=== PATIENT | female | born 1960 | race Two or more races ===

== ENCOUNTER 2018-03-31 16:00 | Inpatient (IN) | payer OTHER ==
[2018-03-31 18:31] VITALS: BMI 26.9
--- NOTE | 2018-03-31 20:26 | HP ---
COWS - Scale Resting Pulse: 1= RI 81-100 Sweatin=Flushed/Facial Moisture Restless Observation: 0= Sits Still Pupil Size: 0= Normal to Room Light Bone or Joint Aches: 0= None Runny Nose/ Eye Tearin= Runny Nose/Eyes GI Upset > 30mins: 3= Vomiting/Diarrhea (diarrhea x 2, no vomiting) Tremor Observation: 2= Slight Tremor Visible Yawning Observation: 1= 1-2x During Session Anxiety or Irritability: 4=Extreme Anxiety Goose Flesh Skin: 0=Smooth Skin COWS Score: 15 Admission [facility] Chief Complaint: Heroin withdrawal symptoms Allergies/Adverse Reactions: Allergies Allergy/AdvReac Type Severity Reaction Status Date / Time No Known Allergies Allergy Verified 03/31/18 18:30 History of Present Illness: 57 years old female with a long history of heroin dependence is seeking admission to detox. Patient's last detox was 7 years ago at [facility] and reports 8 years of sobriety. She has medical history of HIV+, Hep C treated Harvoni, Depression, Poly neuropathy, Anxiety, anemia and Insomnia. Patient denies suicide attempt and suicidal ideation at this time. Exam Limitations: No Limitations - Ebola screening Have you traveled outside of the country in the last 21 days: No (N) Have you had contact with anyone from an Ebola affected area: No Have you been sick,other than usual withdrawal symptoms: No Do you have a fever: No - Review of Systems Constitutional: Chills, Loss of Appetite, Malaise, Changes in sleep EENT: reports: No Symptoms Reported Respiratory: reports: No Symptoms reported Cardiac: reports: No Symptoms Reported GI: reports: Diarrhea (x 2), Nausea, Poor Appetite, Poor Fluid Intake, Abdominal cramping : reports: No Symptoms Reported Musculoskeletal: reports: Back Pain, Muscle Pain Integumentary: reports: Dryness Neuro: reports: Tremors Endocrine: reports: No Symptoms Reported Hematology: reports: Anemia, Easy Bruising Psychiatric: reports: Anxious, Depressed Other Systems: Reviewed and Negative Patient History - Patient Medical History Hx Anemia: Yes (Not on medication) Hx Asthma: No Hx Chronic Obstructive Pulmonary Disease (COPD): No Hx Cancer: No Hx Cardiac Disorders: No Hx Hypertension: No Hx Hypercholesterolemia: No Hx Pacemaker: No HX Cerebrovascular Accident: No Hx Seizures: No Hx Dementia: No Hx Diabetes: No Hx Gastrointestinal Disorders: No Hx Liver Disease: Yes (Hep C (treated with Harvoni)) Hx Genitourinary Disorders: No Hx Sexually Transmitted Disorders: No Hx Renal Disease (ESRD): No Hx Thyroid Disease: No Hx Human Immunodeficiency Virus (HIV): Yes (Diagnosed 1996, On Triumeq) Hx Hepatitis C: Yes (Treated with Harvoni) Hx Depression: Yes (Not on medication) Hx Suicide Attempt: No (Denies suicide attempt and suicidal ideation at this time) Hx Bipolar Disorder: Yes (Not on medication) Hx Schizophrenia: No Other Medical History: Anxiety - - Patient Surgical History Past Surgical History: No Hx Neurologic Surgery: No Hx Cataract Extraction: No Hx Cardiac Surgery: No Hx Lung Surgery: No Hx Breast Surgery: No Hx Breast Biopsy: No Hx Abdominal Surgery: No Hx Appendectomy: No Hx Cholecystectomy: No Hx Genitourinary Surgery: No Hx Section: No Hx Orthopedic Surgery: No Anesthesia Reaction: No - PPD History Previous Implant?: Yes Documented Results: Negative w/o proof Implanted On Prior [facility] Admission?: No PPD to be Administered?: Yes - Reproductive History Patient is a Female of Child Bearing Age (11 -55 yrs old): Yes LMP comment: MENOPAUSAL Patient : No - Smoking Cessation Smoking history: Current every day smoker Have you smoked in the past 12 months: Yes Aproximately how many cigarettes per day: 4 Hx Chewing Tobacco Use: No Initiated information on smoking cessation: Yes 'Breaking Loose' booklet given: 03/31/18 - Substance & Tx. History Hx Alcohol Use: No Hx Substance Use: Yes Substance Use Type: Heroin, Opiates Hx Substance Use Treatment: Yes ([facility]) - Substances Abused Heroin Route: Inhalation Frequency: Daily Amount used: 4 bags Age of first use: 27 Date of Last Use: 03/31/18 Family Disease History - Family Disease History Family Disease History: CA: Mother (Stomach Cancer- ), Brother (Sarcoma - ), Respiratory: Brother, Sister (Aneurysm), Other: Father (Alcoholic) Admission Physical Exam BHS - Vital Signs Vital Signs: Vital Signs - 24 hr 03/31/18 18:26 Temperature 98.7 F Pulse Rate 84 Respiratory 18 Rate Blood Pressure 110/69 - Physical General Appearance: Yes: Moderate Distress, Tremorous, Irritable, Sweating, Anxious HEENTM: Yes: EOMI, Normal ENT Inspection, Normocephalic, Normal Voice, HERMAN Respiratory: Yes: Lungs Clear, Normal Breath Sounds, No Respiratory Distress Neck: Yes: Supple Breast: Yes: Breast Exam Deferred Cardiology: Yes: Regular Rhythm, Regular Rate Abdominal: Yes: Normal Bowel Sounds, Soft Genitourinary: Yes: Within Normal Limits Back: Yes: Normal Inspection Musculoskeletal: Yes: Back pain, Muscle Pain Extremities: Yes: Tremors Neurological: Yes: Alert, Normal Mood/Affect Integumentary: Yes: Dry Lymphatic: Yes: Within Normal Limits - Diagnostic (1) Opioid dependence with withdrawal Current Visit: Yes Status: Chronic (2) Depression Current Visit: Yes Status: Chronic Qualifiers: Depression Type: unspecified Qualified Code(s): F32.9 - Major depressive disorder, single episode, unspecified (3) Anxiety Current Visit: Yes Status: Chronic (4) HIV (human immunodeficiency virus infection) Current Visit: Yes Status: Chronic (5) Anemia Current Visit: Yes Status: Chronic (6) Insomnia Current Visit: Yes Status: Chronic (7) Polyneuropathy Current Visit: Yes Status: Chronic Cleared for Admission [facility] - Detox or Rehab [facility] Level of Care: Medically Managed Detox Regimen/Protocol: Methadone [facility] Breath Alcohol Content Breath Alcohol Content: 0 Urine Pregancy Test - Result Urine Test Results: Negative- NO Line Present Urine Drug Screen - Results Drug Screen Negative: No Urine Drug Screen Results: OPI-Opiates, OXY-Oxycodone
[2018-03-31] MEDS ORDERED: MAGNESIUM CITRATE 300 ML BOTTLE PO PRN (20:40)
[2018-03-31] MEDS ORDERED: ACETAMINOPHEN 325 MG TABLET (FP) PO PRN (20:40)
[2018-03-31] MEDS ORDERED: LOPERAMIDE HCL 2 MG CAPSULE PO PRN (20:40)
[2018-03-31] MEDS ORDERED: IBUPROFEN 400 MG TABLET (FP) PO PRN (20:40)
[2018-03-31] MEDS ORDERED: MENTHOL/PHENOL 1 EACH UD MM PRN (20:40)
[2018-03-31] MEDS ORDERED: P-EPHED 60MG/TRIPROLIDI 2.5MG TABLET PO PRN (20:40)
[2018-03-31] MEDS ORDERED: MAG HYDROX/AL HYDROX/SIMETH 30 ML UNIT-DOSE CUP PO PRN (20:40)
[2018-03-31] MEDS ORDERED: guaiFENesin/D-METHORPHAN HB 10 ML UNIT-DOSE CUPS PO PRN (20:40)
[2018-03-31] MEDS ORDERED: MAGNESIUM HYDROX 2400MG/30ML ORAL SUSPENSION 30 ML CUP PO PRN (20:40)
[2018-03-31] MEDS ORDERED: NICOTINE POLACRILEX 2 MG GUM BC PRN (20:40)
[2018-03-31] MEDS ORDERED: METHADONE HCL 10 MG TABLET (FOR DETOX USE ONLY) PO ONE ×2 (21:00→23:00)
[2018-03-31] MEDS ORDERED: NYSTATIN POWDER 100,000 UNITS/GM - 15 GM TOPICAL POWDER TP SCH (22:00)
[2018-03-31] MEDS ORDERED: MELATONIN 5 MG TABLETS PO PRN (22:00)
[2018-03-31] MEDS: THIAMINE HCL 100 MG TABLET (FP) PO SCH (23:17)
[2018-03-31] MEDS: GABAPENTIN 300 MG CAPSULE (FP) PO SCH (23:18)
[2018-04-01 05:12] LABS: URINE APPEARANCE CLOUDY; URINE COLOR AMBER; URINE GLUCOSE (UA) NEGATIVE (NEGATIVE); URINE KETONE TRACE (NEGATIVE); URINE NITRITE NEGATIVE (NEGATIVE)
[2018-04-01 05:38] LABS: URINE LEUK ESTERASE 1+ (NEGATIVE); URINE PROTEIN 1+ (NEGATIVE)
[2018-04-01 05:43] LABS: EPI CELLS FEW /HPF (FEW); URINE BACTERIA RARE /hpf (NONE SEEN); URINE MUCUS RARE; YEAST MANY
[2018-04-01] MEDS: GABAPENTIN 300 MG CAPSULE (FP) PO SCH ×3 (05:59→22:01)
--- NOTE | 2018-04-01 07:48 | CONSULT ---
[facility] Psychiatric Consult - Data Date of interview: 04/01/18 Admission source: [facility] Identifying data: This is 57 years old female, single mother of two, living with family, on SSI, with psychiatric hospitalization history, with a long history of heroin dependence is seeking admission to detox. Patient reports withdrawal symptoms from Opioids. Substance Abuse History: Smoking history: Current every day smoker. Have you smoked in the past 12 months: Yes. Aproximately how many cigarettes per day: 4. Hx Chewing Tobacco Use: No. Initiated information on smoking cessation: Yes. 'Breaking Loose' booklet given: 03/31/18. - Substance & Tx. History. Hx Alcohol Use: No. Hx Substance Use: Yes. Substance Use Type: Heroin, Opiates. Hx Substance Use Treatment: Yes ([facility]). - Substances Abused. Heroin. Route: Inhalation. Frequency: Daily. Amount used: 4 bags. Age of first use: 27. Date of Last Use: 03/31/18 Medical History: Anemia history, HIV+ history, HepC+ Psychiatric History: Patient reports history depression and anxiety, reports unclear psychiatric admission on about more then 10 years ago fir safety, denies suicidal, homicidal history, reports taking prior to admission: Trazodone 100mg pop qhs, patient refusing to restart Trazodone during detox protocol. Physical/Sexual Abuse/Trauma History: Denies Additional Comment: Observation. Detox Unit Care Protocol Mental Status Exam - Mental Status Exam Alert and Oriented to: Person Cognitive Function: Fair Patient Appearance: Unkempt Mood: Sad Affect: Flat Patient Behavior: Sedated Speech Pattern: Delayed Voice Loudness: Mildly Soft/Quiet Thought Process: Circumstantial Thought Disorder: Being Controlled Hallucinations: Denies Suicidal Ideation: Denies Homicidal Ideation: Denies Insight/Judgement: Fair Sleep: Difficulty falling asleep Appetite: Fair Muscle strength/Tone: Mild Hypotonicity Gait/Station: Shuffling Additional Comments: Observation. Detox Unit Care Protocol Psychiatric Findings - Problem List (Theodosia 1, 2,3) (1) Nicotine dependence Current Visit: Yes Status: Acute (2) Drug-induced mood disorder Current Visit: Yes Status: Acute (3) Anemia Current Visit: Yes Status: Chronic (4) Anxiety Current Visit: Yes Status: Chronic (5) Depression Current Visit: Yes Status: Chronic Qualifiers: Depression Type: unspecified Qualified Code(s): F32.9 - Major depressive disorder, single episode, unspecified (6) HIV (human immunodeficiency virus infection) Current Visit: Yes Status: Chronic (7) Insomnia Current Visit: Yes Status: Chronic Qualifiers: Insomnia type: unspecified Qualified Code(s): G47.00 - Insomnia, unspecified (8) Opioid dependence with withdrawal Current Visit: Yes Status: Chronic (9) Polyneuropathy Current Visit: Yes Status: Chronic - Initial Treatment Plan Initial Treatment Plan: Observation. Detox Unit Care Protocol
[2018-04-01 09:40] LABS: HEMATOCRIT 42.7 % (32.4-45.2); HEMOGLOBIN 14.2 GM/dL (10.7-15.3); MCH 35.3 pg (25.7-33.7); MCHC 33.2 g/dl (32.0-36.0); MEAN CELL VOLUME 106.1 fl (80-96); MEAN PLT VOLUME 9.3 fl (7.5-11.1); PLATELET COUNT 95 K/MM3 (134-434); RBC 4.03 M/mm3 (3.60-5.2); RDW 13.1 % (11.6-15.6); WHITE BLOOD COUNT 4.7 K/mm3 (4.0-10.0)
[2018-04-01 09:53] LABS: ALBUMIN 3.4 g/dl (3.4-5.0); ANION GAP 5 (8-16); BLOOD UREA NITROGEN 15 mg/dL (7-18); CALCIUM 9.1 mg/dL (8.5-10.1); CHLORIDE 107 mmol/L (98-107); CO2 30 mmol/L (21-32); GLUCOSE,RANDOM 73 mg/dL (74-106); POTASSIUM 4.7 mmol/L (3.5-5.1); SGOT/AST 35 U/L (15-37); SODIUM 142 mmol/L (136-145)
[2018-04-01 09:55] LABS: ALK PHOS 112 U/L (45-117); CREATININE 1.1 mg/dL (0.55-1.02); SGPT/ALT 25 U/L (12-78); TOT PROT 7.1 g/dl (6.4-8.2)
[2018-04-01] MEDS ORDERED: METHADONE HCL 10 MG TABLET (FOR DETOX USE ONLY) PO ONE (10:00)
[2018-04-01] MEDS: NYSTATIN TP SCH ×2 (10:16→22:02)
[2018-04-01] MEDS: PRENATAL VITAMINS W/ FOLIC ACID TABLET (FP) PO SCH (10:16)
[2018-04-01] MEDS: NICOTINE 14 MG/24 HOURS TOPICAL PATCH TD SCH (10:16)
--- NOTE | 2018-04-01 11:28 | PN ---
BHS COWS - Scale Resting Pulse: 0= [place] 80 or Below Sweatin= Chills/Flushing Restless Observation: 1= Difficult to Sit Still Pupil Size: 1= Pupils >than Normal Bone or Joint Aches: 2= Severe Diffuse Aches Runny Nose/ Eye Tearin= Nasal Congestion GI Upset > 30mins: 2= Nausea/Diarrhea Tremor Observation of Outstretched Hands: 2= Slight Tremor Visible Yawning Observation: 2= >3x During Session Anxiety or Irritability: 2=Irritable/Anxious Goose Flesh Skin: 0=Smooth Skin COWS Score: 14 BHS Progress Note (SOAP) Subjective: muscle cramping joints pain body aches sweat tremor Objective: 04/01/18 11:33 Vital Signs Temperature 97.7 F 04/01/18 09:30 Pulse Rate 63 04/01/18 09:30 Respiratory Rate 18 04/01/18 09:30 Blood Pressure 105/62 04/01/18 09:30 O2 Sat by Pulse Oximetry (%) Laboratory Last Values WBC 4.7 K/mm3 (4.0-10.0) 04/01/18 07:30 RBC 4.03 M/mm3 (3.60-5.2) 04/01/18 07:30 Hgb 14.2 GM/dL (10.7-15.3) 04/01/18 07:30 Hct 42.7 % (32.4-45.2) 04/01/18 07:30 MCV 106.1 fl (80-96) H 04/01/18 07:30 MCH 35.3 pg (25.7-33.7) H 04/01/18 07:30 MCHC 33.2 g/dl (32.0-36.0) 04/01/18 07:30 RDW 13.1 % (11.6-15.6) 04/01/18 07:30 Plt Count 95 K/MM3 (134-434) L 04/01/18 07:30 MPV 9.3 fl (7.5-11.1) 04/01/18 07:30 Sodium 142 mmol/L (136-145) 04/01/18 07:30 Potassium 4.7 mmol/L (3.5-5.1) 04/01/18 07:30 Chloride 107 mmol/L (98-107) 04/01/18 07:30 Carbon Dioxide 30 mmol/L (21-32) 04/01/18 07:30 Anion Gap 5 (8-16) L 04/01/18 07:30 BUN 15 mg/dL (7-18) 04/01/18 07:30 Creatinine 1.1 mg/dL (0.55-1.02) H 04/01/18 07:30 Creat Clearance w eGFR 51.02 (>60) 04/01/18 07:30 Random Glucose 73 mg/dL (74-106) L 04/01/18 07:30 Calcium 9.1 mg/dL (8.5-10.1) 04/01/18 07:30 Total Bilirubin 1.0 mg/dL (0.2-1.0) 04/01/18 07:30 AST 35 U/L (15-37) 04/01/18 07:30 ALT 25 U/L (12-78) 04/01/18 07:30 Alkaline Phosphatase 112 U/L (45-117) 04/01/18 07:30 Total Protein 7.1 g/dl (6.4-8.2) 04/01/18 07:30 Albumin 3.4 g/dl (3.4-5.0) 04/01/18 07:30 Urine Color [place] 03/31/18 23:25 Urine Appearance Cloudy 03/31/18 23:25 Urine pH 5.0 (5.0-8.0) 03/31/18 23:25 Ur Specific [place] 1.025 (1.001-1.035) 03/31/18 23:25 Urine Protein 1+ (NEGATIVE) H 03/31/18 23:25 Urine Glucose (UA) Negative (NEGATIVE) 03/31/18 23:25 Urine Ketones Trace (NEGATIVE) H 03/31/18 23:25 Urine Blood Negative (NEGATIVE) 03/31/18 23:25 Urine Nitrite Negative (NEGATIVE) 03/31/18 23:25 Urine Bilirubin 2.0 (<2.0 mg/dL) 03/31/18 23:25 Urine Urobilinogen 2.0 mg/dL (0.2-1.0) H 03/31/18 23:25 Ur Leukocyte Esterase 1+ (NEGATIVE) H 03/31/18 23:25 Urine WBC (Auto) 18 /hpf (3-5) 03/31/18 23:25 Urine RBC (Auto) 14 /hpf (0-3) 03/31/18 23:25 Ur Epithelial Cells Few /HPF (FEW) 03/31/18 23:25 Urine Bacteria Rare /hpf (NONE SEEN) 03/31/18 23:25 Urine Mucus Rare 03/31/18 23:25 Urine Yeast Many 03/31/18 23:25 lab noted repeat camp repeat ua Assessment: 04/01/18 11:36 withdrawal sx creatinin elevation rule out uti Plan: continue detox
--- NOTE | 2018-04-01 12:49 | EKG ---
Test Reason : Blood Pressure : / mmHG Vent. Rate : 061 BPM Atrial Rate : 061 BPM P-R Int : 140 ms QRS Dur : 094 ms QT Int : 448 ms P-R-T Axes : 044 085 057 degrees QTc Int : 450 ms NORMAL SINUS RHYTHM NORMAL ECG NO PREVIOUS ECGS AVAILABLE Confirmed by DEVIN REYES MD ([id number]) on 04/01/2018 12:49:10 PM Referred By: Confirmed By:DEVIN REYES MD
[2018-04-01] MEDS: diazePAM 5 MG TABLET PO PRN (18:08)
[2018-04-01] MEDS: THIAMINE HCL 100 MG TABLET (FP) PO SCH (22:01)
[2018-04-02] MEDS: GABAPENTIN 300 MG CAPSULE (FP) PO SCH ×3 (05:14→22:03)
[2018-04-02] MEDS ORDERED: METHADONE HCL 5 MG TABLET (FOR DETOX USE ONLY) PO ONE (10:00)
[2018-04-02] MEDS: PRENATAL VITAMINS W/ FOLIC ACID TABLET (FP) PO SCH (10:06)
[2018-04-02] MEDS: NYSTATIN TP SCH ×2 (10:06→22:04)
[2018-04-02] MEDS: NICOTINE 14 MG/24 HOURS TOPICAL PATCH TD SCH (10:06)
[2018-04-02 10:48] LABS: CHLORIDE 110 mmol/L (98-107); POTASSIUM 5.1 mmol/L (3.5-5.1); SODIUM 145 mmol/L (136-145)
--- NOTE | 2018-04-02 10:48 | PN ---
BHS COWS - Scale Resting Pulse: 0= [place] 80 or Below Sweatin= Chills/Flushing Restless Observation: 1= Difficult to Sit Still Pupil Size: 1= Pupils >than Normal Bone or Joint Aches: 1= Mild Discomfort Runny Nose/ Eye Tearin= Nasal Congestion GI Upset > 30mins: 1= Stomach Cramp Tremor Observation of Outstretched Hands: 1= Tremor [place], Not Seen Yawning Observation: 0= None Anxiety or Irritability: 1=Feels Anxious/Irritable Goose Flesh Skin: 0=Smooth Skin COWS Score: 8 BHS Progress Note (SOAP) Subjective: interrupted sleep, feeling cold Objective: 04/02/18 10:45 Vital Signs Temperature 97.9 F 04/02/18 06:24 Pulse Rate 55 L 04/02/18 06:30 Respiratory Rate 18 04/02/18 06:30 Blood Pressure 101/62 04/02/18 06:24 O2 Sat by Pulse Oximetry (%) Laboratory Tests 03/31/18 04/01/18 04/01/18 23:25 07:30 07:30 WBC 4.7 RBC 4.03 Hgb 14.2 Hct 42.7 MCV 106.1 H MCH 35.3 H MCHC 33.2 RDW 13.1 Plt Count 95 L MPV 9.3 Sodium 142 Potassium 4.7 Chloride 107 Carbon Dioxide 30 Anion Gap 5 L BUN 15 Creatinine 1.1 H Creat Clearance w eGFR 51.02 Random Glucose 73 L Calcium 9.1 Total Bilirubin 1.0 AST 35 ALT 25 Alkaline Phosphatase 112 Total Protein 7.1 Albumin 3.4 Urine Color Britt Urine Appearance Cloudy Urine pH 5.0 Ur Specific [place] 1.025 Urine Protein 1+ H Urine Glucose (UA) Negative Urine Ketones Trace H Urine Blood Negative Urine Nitrite Negative Urine Bilirubin 2.0 Urine Urobilinogen 2.0 H Ur Leukocyte Esterase 1+ H Urine WBC (Auto) 18 Urine RBC (Auto) 14 Ur Epithelial Cells Few Urine Bacteria Rare Urine Mucus Rare Urine Yeast Many RPR Titer 04/01/18 07:30 WBC RBC Hgb Hct MCV MCH MCHC RDW Plt Count MPV Sodium Potassium Chloride Carbon Dioxide Anion Gap BUN Creatinine Creat Clearance w eGFR Random Glucose Calcium Total Bilirubin AST ALT Alkaline Phosphatase Total Protein Albumin Urine Color Urine Appearance Urine pH Ur Specific [place] Urine Protein Urine Glucose (UA) Urine Ketones Urine Blood Urine Nitrite Urine Bilirubin Urine Urobilinogen Ur Leukocyte Esterase Urine WBC (Auto) Urine RBC (Auto) Ur Epithelial Cells Urine Bacteria Urine Mucus Urine Yeast RPR Titer Nonreactive pt lying in bed in nad , cooperative Assessment: 04/02/18 10:45 withdrawal sx's [place] 95k mcv 106.1 04/02/18 10:46 04/02/18 10:47 Plan: cont. detox increase fluids repeat u/a
[2018-04-02 10:53] LABS: ALBUMIN 2.9 g/dl (3.4-5.0); ALK PHOS 113 U/L (45-117); ANION GAP 5 (8-16); BLOOD UREA NITROGEN 11 mg/dL (7-18); CALCIUM 8.7 mg/dL (8.5-10.1); CO2 30 mmol/L (21-32); CREATININE 0.9 mg/dL (0.55-1.02); GLUCOSE,RANDOM 77 mg/dL (74-106); SGOT/AST 38 U/L (15-37); SGPT/ALT 28 U/L (12-78); TOT PROT 6.1 g/dl (6.4-8.2)
[2018-04-02] MEDS: diazePAM 5 MG TABLET PO PRN ×2 (13:54→22:04)
[2018-04-02 16:29] LABS: URINE APPEARANCE SLCLOUDY; URINE BILIRUBIN NEGATIVE (<2.0 mg/dL); URINE COLOR YELLOW; URINE GLUCOSE (UA) NEGATIVE (NEGATIVE); URINE KETONE NEGATIVE (NEGATIVE); URINE LEUK ESTERASE TRACE (NEGATIVE); URINE NITRITE NEGATIVE (NEGATIVE); URINE PROTEIN NEGATIVE (NEGATIVE)
[2018-04-02 16:45] LABS: CALCIUM OXALATE CRYSTALS FEW /hpf (NONE SEEN); EPI CELLS RARE /HPF (FEW); URINE BACTERIA RARE /hpf (NONE SEEN); URINE MUCUS MODERATE; YEAST MANY
[2018-04-02] MEDS: THIAMINE HCL 100 MG TABLET (FP) PO SCH (22:03)
[2018-04-03] MEDS: GABAPENTIN 300 MG CAPSULE (FP) PO SCH ×3 (05:29→22:10)
[2018-04-03] MEDS ORDERED: METHADONE HCL 5 MG TABLET (FOR DETOX USE ONLY) PO ONE (10:00)
[2018-04-03] MEDS: NYSTATIN TP SCH ×2 (10:19→22:10)
[2018-04-03] MEDS: PRENATAL VITAMINS W/ FOLIC ACID TABLET (FP) PO SCH (10:19)
[2018-04-03] MEDS: NICOTINE 14 MG/24 HOURS TOPICAL PATCH TD SCH (10:19)
[2018-04-03] MEDS: diazePAM 5 MG TABLET PO PRN (12:45)
--- NOTE | 2018-04-03 13:53 | PN ---
BHS Progress Note (SOAP) Subjective: alert,irritable,anxious,interrupted sleep,pain in the body Objective: 04/03/18 13:52 Vital Signs Temperature 98.1 F 04/03/18 10:04 Pulse Rate 61 04/03/18 10:04 Respiratory Rate 16 04/03/18 10:04 Blood Pressure 125/64 04/03/18 10:04 O2 Sat by Pulse Oximetry (%) Assessment: 04/03/18 13:52 withdrawal symptom Plan: continue detox
[2018-04-03 21:55] VITALS: TEMP 97.9
[2018-04-03] MEDS: THIAMINE HCL 100 MG TABLET (FP) PO SCH (22:10)
[2018-04-04] MEDS: GABAPENTIN 300 MG CAPSULE (FP) PO SCH (05:35)
[2018-04-04 07:52] VITALS: BP 97/63; PULSE 61
[2018-04-04] MEDS ORDERED: METHADONE HCL 5 MG TABLET (FOR DETOX USE ONLY) PO ONE (08:30)
[2018-04-04] MEDS ORDERED: METHADONE HCL 10 MG TABLET (FOR DETOX USE ONLY) PO ONE (10:00)
--- NOTE | 2018-04-04 10:16 | DS ---
[facility] Detox Discharge Summary Admission Date: 03/31/18 Discharge Date: 04/04/18 - History Present History: Opioid Dependence Additional Comments: 57 years old female admitted on 03/31/18 for opiate withdrawal sx prefers to take last dose of methadone as per detox regimen today before leaving the detox unit alert oriented x 3 no acute distress denies suicidal denies homocidal no self destructive behavior aftercare [facility] reports to return to [facility] for revelation admission on 04/05/18 Pertinent Past History: patient understands the importance of ART adherence - Physical Exam Results Vital Signs: Vital Signs Temperature 97.9 F 04/04/18 07:51 Pulse Rate 61 04/04/18 07:51 Respiratory Rate 18 04/04/18 07:51 Blood Pressure 97/63 04/04/18 07:51 O2 Sat by Pulse Oximetry (%) Pertinent Admission Physical Exam Findings: opiate withdrawal sx Vital Signs Temperature 97.9 F 04/04/18 07:51 Pulse Rate 61 04/04/18 07:51 Respiratory Rate 18 04/04/18 07:51 Blood Pressure 97/63 04/04/18 07:51 O2 Sat by Pulse Oximetry (%) Laboratory Last Values WBC 4.7 K/mm3 (4.0-10.0) 04/01/18 07:30 RBC 4.03 M/mm3 (3.60-5.2) 04/01/18 07:30 Hgb 14.2 GM/dL (10.7-15.3) 04/01/18 07:30 Hct 42.7 % (32.4-45.2) 04/01/18 07:30 MCV 106.1 fl (80-96) H 04/01/18 07:30 MCH 35.3 pg (25.7-33.7) H 04/01/18 07:30 MCHC 33.2 g/dl (32.0-36.0) 04/01/18 07:30 RDW 13.1 % (11.6-15.6) 04/01/18 07:30 Plt Count 95 K/MM3 (134-434) L 04/01/18 07:30 MPV 9.3 fl (7.5-11.1) 04/01/18 07:30 Sodium 145 mmol/L (136-145) 04/02/18 07:40 Potassium 5.1 mmol/L (3.5-5.1) 04/02/18 07:40 Chloride 110 mmol/L (98-107) H 04/02/18 07:40 Carbon Dioxide 30 mmol/L (21-32) 04/02/18 07:40 Anion Gap 5 (8-16) L 04/02/18 07:40 BUN 11 mg/dL (7-18) 04/02/18 07:40 Creatinine 0.9 mg/dL (0.55-1.02) 04/02/18 07:40 Creat Clearance w eGFR > 60 (>60) 04/02/18 07:40 Random Glucose 77 mg/dL (74-106) 04/02/18 07:40 Calcium 8.7 mg/dL (8.5-10.1) 04/02/18 07:40 Total Bilirubin 1.0 mg/dL (0.2-1.0) 04/02/18 07:40 AST 38 U/L (15-37) H 04/02/18 07:40 ALT 28 U/L (12-78) 04/02/18 07:40 Alkaline Phosphatase 113 U/L (45-117) 04/02/18 07:40 Total Protein 6.1 g/dl (6.4-8.2) L 04/02/18 07:40 Albumin 2.9 g/dl (3.4-5.0) L 04/02/18 07:40 Urine Color Yellow 04/02/18 10:45 Urine Appearance Slcloudy 04/02/18 10:45 Urine pH 6.0 (5.0-8.0) 04/02/18 10:45 Ur Specific [place] 1.016 (1.001-1.035) 04/02/18 10:45 Urine Protein Negative (NEGATIVE) 04/02/18 10:45 Urine Glucose (UA) Negative (NEGATIVE) 04/02/18 10:45 Urine Ketones Negative (NEGATIVE) 04/02/18 10:45 Urine Blood Negative (NEGATIVE) 04/02/18 10:45 Urine Nitrite Negative (NEGATIVE) 04/02/18 10:45 Urine Bilirubin Negative (<2.0 mg/dL) 04/02/18 10:45 Urine Urobilinogen 2.0 mg/dL (0.2-1.0) H 04/02/18 10:45 Ur Leukocyte Esterase Trace (NEGATIVE) 04/02/18 10:45 Urine WBC (Auto) 4 /hpf (3-5) 04/02/18 10:45 Urine RBC (Auto) 21 /hpf (0-3) 04/02/18 10:45 Ur Epithelial Cells Rare /HPF (FEW) 04/02/18 10:45 Calcium Oxalate Crystal Few /hpf (NONE SEEN) 04/02/18 10:45 Urine Bacteria Rare /hpf (NONE SEEN) 04/02/18 10:45 Urine Mucus Moderate 04/02/18 10:45 Urine Yeast Many 04/02/18 10:45 RPR Titer Nonreactive (NONREACTIVE) 04/01/18 07:30 lab noted - Treatment Hospital Course: Detox Protocol Followed, Detoxed Safely, Responded well, Discharged Condition Good, Rehab Referral Accepted Patient has Accepted a Rehab Referral to: [facility] - Medication Discharge Medications: Ambulatory Orders Abacavir/Dolutegravir/Lamivudi [Triumeq Tablet] 1 each PO DAILY 03/31/18 Nystatin Powder [Nystop Powder -] 15 gm TP BID 03/31/18 Trazodone HCl 100 mg PO DAILY 03/31/18 Gabapentin [Neurontin -] 300 mg PO TID #90 capsule 04/04/18 - Diagnosis (1) Nicotine dependence Current Visit: Yes Status: Acute Qualifiers: Nicotine product type: cigarettes Substance use status: in withdrawal Qualified Code(s): F17.213 - Nicotine dependence, cigarettes, with withdrawal (2) HIV (human immunodeficiency virus infection) Current Visit: Yes Status: Chronic (3) Opioid dependence with withdrawal Current Visit: Yes Status: Acute (4) Polyneuropathy Current Visit: Yes Status: Chronic - AMA Did Patient Leave Against Medical Advice: No
[2018-04-04] MEDS: NICOTINE 14 MG/24 HOURS TOPICAL PATCH TD SCH (11:04)
[2018-04-04] MEDS: PRENATAL VITAMINS W/ FOLIC ACID TABLET (FP) PO SCH (11:05)
[2018-04-04] MEDS: NYSTATIN TP SCH (11:05)
[2018-04-05] MEDS ORDERED: METHADONE HCL 5 MG TABLET (FOR DETOX USE ONLY) PO ONE (06:00)
== END 2018-04-04 09:45 | disposition left against medical advice (07) | DRG 894 ==
LOC: YASAS 16:00 → Y6N 18:45
PROVIDERS: ADMIT Surgery; ATTEND Surgery
PROC: HZ2ZZZZ Detoxification Services for Substance Abuse Treatment (ICD-10-PCS; principal; 2018-03-31)
DX: F11.23 Opioid dependence with withdrawal (principal); F17.213 Nicotine dependence, cigarettes, with withdrawal; F19.24 Other psychoactive substance dependence with psychoactive substance-induced mood disorder; F41.9 Anxiety disorder, unspecified; F32.9 Major depressive disorder, single episode, unspecified; Z21 Asymptomatic human immunodeficiency virus [HIV] infection status; G62.9 Polyneuropathy, unspecified; D64.9 Anemia, unspecified
CPT/HCPCS: 36415; 80053; 81003; 81015; 85027; 86593; 93005; 93010